=== PATIENT | female | born 1950 | race Caucasian/White ===

== ENCOUNTER 2016-06-29 19:22 | Emergency (ER) | payer BC ==
[2016-06-29 19:57] VITALS: BP 170/100; PULSE 95; RESP 18; TEMP 98.2; O2SAT 93
[2016-06-29] MEDS ORDERED: AZITHROMYCIN 250 MG TAB PO ONE (20:43)
--- NOTE | 2016-06-29 20:45 | UCPHY ---
H & P Time Seen by Provider: 06/29/16 20:30 Patient Type: Established HPI/ROS: This patient complains of cough for the past week. She has associated feeling of fatigue. She describes feeling of chest congestion. She also has nasal congestion. She reports slight shortness of breath since the onset of this illness. Finally, she describes low-grade subjective fevers. She notes no exacerbating factors for her symptoms. She is accompanied by her . ROS: No chills or rigors. She has mild fatigue. HEENT: She has nasal congestion. No sinus pain. She complains of mild ear pressure bilaterally. Pulmonary: No significant wheezing. No pleuritic pain. No hemoptysis. Cardiovascular: Chest pain only when she coughs that feels bronchial to her. No other chest pain. No heart palpitations or lightheadedness. No lower extremity swelling or calf pain. GI: No complaints. 7 point ROS is otherwise negative Past Medical/Surgical History: Hypothyroid Hypertensive Otherwise healthy Smoking Status: Never smoked Physical Exam: Physical Exam Vital signs are normal. General: No acute distress HEENT: Nose: Clear discharge bilaterally. No sinus tenderness to percussion. Ears: External canals and tympanic membranes are clear with no erythema or abnormal findings bilaterally. Oropharynx: No erythema or exudates. No dysphonia. No drooling or stridor. Eyes: Pupils equal and react to light. Extraocular motions are intact. Neck: Supple with no meningismus. No lymphadenopathy Lungs: Faint expiratory wheeze with minimal rhonchi. No rales. Cardiac: Regular rate and rhythm with no murmur gallop or rub Skin: No rash or pallor. Neuro: Alert with no focal deficits noted. Initial differential diagnosis: Viral bronchitis versus bacterial bronchitis, URI with cough, doubt pneumonia Constitutional: Initial Vital Signs Temperature (C) 36.8 C 06/29/16 19:27 Heart Rate 95 06/29/16 19:27 Respiratory Rate 18 06/29/16 19:27 Blood Pressure 170/100 H 06/29/16 19:27 O2 Sat (%) 93 06/29/16 19:27 O2 Delivery Mode Room Air Allergies/Adverse Reactions: aspirin [Aspirin] Allergy (Severe, Verified 06/29/16 19:57) Anaphylaxis Sulfa (Sulfonamide Antibiotics) Allergy (Severe, Verified 06/29/16 19:57) Anaphylaxis Home Medications: Medication Instructions Recorded Azithromycin [Zithromax] 250 mg PO DAILY #4 tab 06/29/16 Bp Med 06/29/16 Levalbuterol Inhaler [Xopenex Hfa 2 puffs IH Q4 PRN #1 mdi 06/29/16 Inhaler] Thyroid Med 06/29/16 Medical Decision Making - Data Points Medications Given: Discontinued Medications Azithromycin (Zithromax) 500 mg PO EDNOW ONE PRN Reason: Protocol Stop: 06/29/16 20:44 Last Admin: 06/29/16 20:51 Dose: 500 mg Departure - Departure Disposition: Home, Routine, Self-Care Clinical Impression: Acute bronchitis Qualifiers: Bronchitis organism: unspecified organism Qualified Code(s): J20.9 - Acute bronchitis, unspecified Condition: Good Instructions: Acute Bronchitis (ED) Additional Instructions: Diagnosis: Acute bronchitis Plan: Humidifier Xopenex inhaler for cough, wheeze or shortness of breath Zithromax antibiotic Ibuprofen Tylenol for fevers Return for any significant worsening despite the treatment plan Referrals: NONE *PRIMARY CARE P,. [Primary Care Provider] - As per Instructions Prescriptions: Azithromycin [Zithromax] 250 mg PO DAILY #4 tab Levalbuterol Inhaler [Xopenex Hfa Inhaler] 2 puffs IH Q4 PRN #1 mdi PRN Reason: Wheezing - PQRS PQRS Measurement: 134: Depression screening and followup, PRIME MD-PHQ2 (12 years and older) Over the last 2 weeks, how often have you been bothered by any of the following problems? 1. Feeling down, depressed, or hopeless? 2. Little interest or pleasure in doing things? Patient answered no to both 1 and 2 130: Documentation of medications. Reviewed all patient medications, doses, route and frequency. 226: Do you smoke? [No.] 47: 65 and older: Advanced care planning. Patient designates surrogate decision maker as spouse 51: 18 years old and older with diagnosis of COPD, spirometry performance. NA 52: 18 years old and older with COPD and symptoms of COPD or FEV1<60% predicted prescribed a B Agonist. NA
== END 2016-06-29 20:52 | disposition home or self-care (01) ==
LOC: CED 19:22
DX: J20.9 Acute bronchitis, unspecified (principal)
CPT/HCPCS: 87400-PO; 87880-PO; 99214-PO; G0463-PO